=== PATIENT | female | born 1940 ===

== ENCOUNTER → 2018-09-29 | Outpatient (CLI) | payer OTHER ==
[~2018-09-29] MED LIST: BILBERRY80 MG PO; CHOL10002; CYAN1000I IM; FA-80.8 MG PO
[2018-09-29 14:14] LABS: Free Thyroxine 0.76 ng/dL (0.70-1.60); Thyroid Stimulating Hormone 1.658 uIU/mL (0.360-4.800)
== END | disposition home or self-care (01) ==
LOC: LAB SHORT 11:45 → LAB EV 11:45
PROVIDERS: Physician Assistant
DX: E03.9 Hypothyroidism, unspecified (principal)
CPT/HCPCS: 84439; 84443; 84481

== ENCOUNTER 2018-10-01 14:29 | Day surgery (SDC) | payer OTHER ==
[~2018-10-01] VITALS: Ht 160 cm; Wt 78.4 kg
[2018-10-01] MEDS ORDERED: FA-80.8 MG PO (15:37)
[2018-10-01] MEDS ORDERED: CYAN1000I IM (15:37)
[2018-10-01] MEDS ORDERED: CHOL10002 (15:38)
[2018-10-01] MEDS ORDERED: BILBERRY80 MG PO (15:38)
--- NOTE | 2018-10-01 16:57 | NUR ---
10/01/18 928 Dakota Perez S PATIENT STATES SHE IS READY TO GO HOME NOW. DENIES PAIN, N/V AT THIS TIME.
== END 2018-10-01 17:01 | disposition home or self-care (01) ==
LOC: ORSCSDS 14:29
PROVIDERS: Ophthalmology
PROC: 080N0ZZ Alteration of Right Upper Eyelid, Open Approach (ICD-10-PCS; principal; 2018-10-01 16:00)
PROC: 080P0ZZ Alteration of Left Upper Eyelid, Open Approach (ICD-10-PCS; principal; 2018-10-01 16:00)
DX: H02.831 Dermatochalasis of right upper eyelid (principal); H02.834 Dermatochalasis of left upper eyelid; I10 Essential (primary) hypertension; J45.909 Unspecified asthma, uncomplicated; E78.5 Hyperlipidemia, unspecified; Z87.891 Personal history of nicotine dependence
CPT/HCPCS: J2250; J3010; J7120

== ENCOUNTER 2019-01-06 08:54 | Emergency (ER) | payer OTHER ==
[~2019-01-06] VITALS: Ht 160 cm; Wt 78.0 kg
[2019-01-06] MEDS ORDERED: THYR60 PO (09:16)
== END 2019-01-06 11:30 | disposition home or self-care (01) ==
LOC: ER 08:54
DX: R04.0 Epistaxis (principal); Z88.0 Allergy status to penicillin; Z88.5 Allergy status to narcotic agent; Z91.040 Latex allergy status; Z79.899 Other long term (current) drug therapy; Z85.3 Personal history of malignant neoplasm of breast; E03.9 Hypothyroidism, unspecified; Z87.891 Personal history of nicotine dependence
CPT/HCPCS: 99283